=== PATIENT | male | born 1970 | race American Indian/Alaskan Native ===

== ENCOUNTER 2021-02-24 10:27 | Day surgery (SDC) | payer OTHER ==
[~2021-02-24 10:27] MED LIST: LACTATED RINGERS 1,000 ML IV SCH; MIDAZOLAM 2 MG/2 ML INJ IV NR
[2021-02-24] MEDS ORDERED: HYDROmorphone 1 MG/1 ML INJ IV PRN (10:53)
[2021-02-24] MEDS ORDERED: ONDANSETRON 4 MG/2 ML INJ IV PRN (10:53)
[2021-02-24] MEDS ORDERED: oxyCODONE /ACETAMINOPHEN 5-325MG TAB PO PRN (10:53)
--- NOTE | 2021-02-24 10:53 | Anesthesia Day of Surgery ---
Anesthesia Day of Surgery - Day of Surgery Patient Examined: Yes Patient H&P Reviewed: Yes Patient is NPO: Yes
--- NOTE | 2021-02-24 10:53 | Anesthesia Consultation ---
Anesthesia Consult and Med Hx Date of service: 02/24/21 - Airway Anesthetic Teeth Evaluation: Good ROM Head & Neck: Adequate Mental/Hyoid Distance: Adequate Mallampati Class: Class I Intubation Access Assessment: Good - Pre-Operative Health Status ASA Pre-Surgery Classification: ASA2 Proposed Anesthetic Plan: General - Pulmonary Hx Smoking: Yes (1/2 - 1 PPD) Hx Respiratory Symptoms: No Hx Sleep Apnea: No (BRIONNA PRE SCREEN LOW RISK) - Cardiovascular System Hx Hypertension: No - Central Nervous System CVA: No - Endocrine Hx Renal Disease: No Hx Liver Disease: No Hx Insulin Dependent Diabetes: No Hx Non-Insulin Dependent Diabetes: No Hx Thyroid Disease: No - Additional Comments Anesthesia Medical History Comments: No hx anesthetic complications.
[2021-02-24] MEDS ORDERED: ceFAZolin/Water 2 GM/20 ML 2 GM/20 ML SYRINGE IV ONE (11:32)
[2021-02-24] MEDS ORDERED: propofoL 200 MG/20 ML VIAL IV ONE (11:47)
[2021-02-24] MEDS ORDERED: fentaNYL 100 MCG/2 ML INJ ONE (11:47)
[2021-02-24] MEDS ORDERED: ceFAZolin/STERILE WATER 2 GM/20 ML SYRINGE IV NR (12:00)
[2021-02-24] MEDS ORDERED: LIDOCAINE MPF (2%) 20 MG/1 ML VIAL 5 ML ONE (12:17)
[2021-02-24] MEDS ORDERED: KETOROLAC 30 MG/1 ML INJ ONE (12:17)
[2021-02-24] MEDS ORDERED: dexAMETHasone 20 MG/5 ML VIAL ONE (12:17)
[2021-02-24] MEDS ORDERED: ONDANSETRON 4 MG/2 ML INJ ONE (12:17)
[2021-02-24] MEDS ORDERED: WATER FOR IRRIG STERILE 2000 ML IR ONE (12:18)
--- NOTE | 2021-02-24 12:42 | Post Operative Note ---
Date of procedure: 02/24/21 Pre-op diagnosis: urethral stricture Post-op diagnosis: same Findings: 3 cm stricture Procedure: cysto dviu rpgs Anesthesia: GETA Surgeon: CHIQUIS HEIN Estimated blood loss: none Pathology: none Condition: stable Disposition: PACU
--- NOTE | 2021-02-24 12:43 | Discharge Summary ---
Short Stay Discharge Plan Activity: other Weight Bearing Status: Full Weight Bearing Diet: low fat, low cholesterol, low salt Special Instructions: other (inc fluids ) Durable Medical Equipment Needed Upon Discharge: other (home with alvarez ) Follow up with: PRIMARY CARE, [Primary Care Provider] - 7 Days CHIQUIS HEIN MD [Staff Physician] - 7 Days
[2021-02-24] MEDS ORDERED: PHENAZOPYRIDINE 200 MG TAB PO ONE ×2 (13:04→15:04)
[2021-02-24] MEDS ORDERED: ACETAMINOPHEN 500 MG TAB PO ONE (13:35)
[2021-02-24 14:14] VITALS: BP 134/77
--- NOTE | 2021-02-24 14:43 | Post Anesthesia Evaluation ---
- Post Anesthesia Evaluation Patient Participated: Yes Airway Patent: Yes Stable Respiratory Function: Yes Nausea/Vomiting: No Temp > 96.8F: Yes Pain Manageable: Yes Adequeate Hydration: Yes Anesthesia Complications: No
--- NOTE | 2021-02-24 15:19 | Fluoroscopy Report ---
FLUOROSCOPY RETROGRADE UROGRAPHY FLUOROSCOPY RETROGRADE URETHROGRAM HISTORY: Urethral stricture FINDINGS: Fluoroscopy was provided by radiology during retrograde urography and retrograde urethrogra m by the urologist. The right ureteral images appear slightly limited. There is suggestion of a mild stricture in the proximal urethra. There is normal filling of both renal collecting systems. No filli ng defect or abnormal dilatation is identified. Please correlate with the procedural report by urolog y. Fluoroscopy time: 0.8 minutes Fluoroscopic images: 7 Signer Name: Mitch Larry Jr, MD Signed: 02/24/2021 3:15 PM Workstation Name: [id number]
--- NOTE | 2021-03-03 18:08 | Operative Report ---
DATE OF SURGERY: 02/24/2021 PREOPERATIVE DIAGNOSIS: Severe urethral stricture. POSTOPERATIVE DIAGNOSIS: Severe urethral stricture. PROCEDURE: Cystoscopy, direct vision internal urethrotomy. SURGEON: Eliseo Hill MD ANESTHESIA: General. FINDINGS: This is a gentleman with severe stricture disease noted in the office. He now presents for direct vision internal urethrotomy. All the options were given to him preoperatively and this is what he has elected to do. He said he will self dilate it after the procedure. DESCRIPTION OF PROCEDURE: The patient was brought to the OR and placed on the operating table. Following induction of anesthesia, was placed in lithotomy position, prepped and draped in the usual sterile fashion. Once we saw the stricture, a wire coiled in the bladder without difficulty, but there was a pinpoint stricture. Once we opened it, we saw it was about 2.5 to 3 cm. The stricture was wide open. It really did not bleed at all. We were able to end up with a large catheter. I think it was a 22-[place]. Patient tolerated the procedure well, no significant complication and brought to Recovery Room in stable condition. TID: [id number] RECEIPT: [id number] RILEY/DANIELA
== END 2021-02-24 13:35 | disposition home or self-care (01) ==
LOC: OR 10:27
PROVIDERS: ATTEND Urology
DX: N35.819 Other urethral stricture, male, unspecified site (principal); F41.9 Anxiety disorder, unspecified; F17.210 Nicotine dependence, cigarettes, uncomplicated; Z88.2 Allergy status to sulfonamides; Z98.890 Other specified postprocedural states; Z79.899 Other long term (current) drug therapy
CPT/HCPCS: 52276; 74420; 74450; A4217; C1758; C1769; J0690; J1100; J1885; J2405; J2704; J3010; J7120; Q9967